=== PATIENT | female | born 1965 | race Caucasian/White ===

== ENCOUNTER 2019-11-30 23:14 | Emergency (ER) | payer BC ==
[2019-11-30] MEDS ORDERED: Lactated Ringers 1,000 ML IV ONE (23:24)
[2019-11-30] MEDS ORDERED: Ondansetron 4 MG/2 ML SDV IVPUSH ONE (23:24)
[2019-11-30] MEDS ORDERED: Atropine/Diphenoxylate 0.025-2.5 MG Tab PO ONE (23:25)
[2019-11-30] MEDS ORDERED: Pantoprazole 40 MG Vial IVPUSH ONE (23:25)
[2019-11-30] MEDS ORDERED: Sucralfate 1 GM Tab PO ONE (23:25)
[2019-11-30] MEDS ORDERED: Acetaminophen 500 MG Tab PO ONE (23:26)
--- NOTE | 2019-11-30 23:46 | EDM.PDOC ---
ED HPI GENERAL MEDICAL PROBLEM - General Chief Complaint: Gastrointestinal Problem Stated Complaint: THROWING UP BLOOD Time Seen by Provider: 11/30/19 23:30 Source of Information: Reports: Patient, Old Records, RN History Limitations: Reports: No Limitations - History of Present Illness INITIAL COMMENTS - FREE TEXT/NARRATIVE: 54 yo female developed nausea, vomiting and diarrhea about 4 pm today. No fever. Has had a total of 4 emesis. The first emesis had no blood, but subsequent bouts have had progressively more blood. Her stools are not red or black. She is dizzy with standing. Does have some epigastric pain. Has no hx of esophageal varices. Onset: Today Onset Date: 11/30/19 Onset Time: 16:00 Duration: Hour(s):, Getting Worse Location: Reports: Abdomen Quality: Reports: Ache (epigastric) Severity: Moderate Improves with: Reports: None Worsens with: Reports: Other (time) Context: Reports: Other (see HPI) Associated Symptoms: Reports: Nausea/Vomiting. Denies: Fever/Chills Treatments [employer]: Reports: Other (see below) (none) abd pain Pain Score (Numeric/FACES): 7 - Related Data Allergies Allergy/AdvReac Type Severity Reaction Status Date / Time No Known Allergies Allergy Verified 11/30/19 23:43 Home Meds: Home Meds Sucralfate [Carafate] 1 gm PO QID #100 tablet 12/01/19 [Rx] ED ROS GENERAL - Review of Systems Review Of Systems: See Below Constitutional: Reports: No Symptoms HEENT: Reports: No Symptoms Respiratory: Reports: No Symptoms Cardiovascular: Reports: Lightheadedness Endocrine: Reports: No Symptoms GI/Abdominal: Reports: Abdominal Pain (epigastric), Diarrhea, Hematemesis, Nausea, Vomiting. Denies: Black Stool, Bloody Stool, Constipation, Hematochezia , Melena : Reports: No Symptoms Musculoskeletal: Reports: No Symptoms Skin: Reports: No Symptoms Neurological: Reports: No Symptoms ED EXAM, GI/ABD - Physical Exam Exam: See Below Exam Limited By: No Limitations General Appearance: Alert, WD/WN, No Apparent Distress Eyes: Bilateral: Normal Appearance Ears: Normal External Exam, Normal Canal, Hearing Grossly Normal Nose: Normal Inspection, No Blood Throat/Mouth: Normal Inspection, Normal Lips, Normal Oropharynx, Normal Voice, No Airway Compromise, Other (dry tongue) Head: Atraumatic, Normocephalic Neck: Normal Inspection Respiratory/Chest: No Respiratory Distress, Lungs Clear, Normal Breath Sounds, No Accessory Muscle Use Cardiovascular: Regular Rate, Rhythm, No Edema GI/Abdominal Exam: Normal Bowel Sounds, Soft, No Distention, Tender (epigastrium ). No: Non-Tender, Distended, Guarding, Rigid, Rebound, Abnormal Bowel Sounds Back Exam: Normal Inspection Extremities: Normal Inspection, Normal Range of Motion, Non-Tender, No Pedal Edema Neurological: Alert, Oriented, CN II-XII Intact, Normal Cognition, No Motor/ Sensory Deficits Psychiatric: Normal Affect, Normal Mood Skin Exam: Warm, Dry, Intact, Normal Color, No Rash Course - Vital Signs Last Recorded V/S: Last Vital Signs Temp 36.4 C 11/30/19 23:59 Pulse 104 H 11/30/19 23:59 Resp 16 11/30/19 23:59 BP 118/72 11/30/19 23:59 Pulse Ox 96 11/30/19 23:59 - Orders/Labs/Meds Labs: Laboratory Tests 11/30/19 11/30/19 Range/Units 23:45 23:45 WBC 11.1 H (4.5-11.0) K/uL RBC 5.22 (3.30-5.50) M/uL Hgb 14.9 (12.0-15.0) g/dL Hct 46.0 (36.0-48.0) % MCV 88 (80-98) fL MCH 29 (27-31) pg MCHC 32 (32-36) % Plt Count 135 L (150-400) K/uL Sodium 140 (140-148) mmol/L Potassium 4.1 (3.6-5.2) mmol/L Chloride 107 (100-108) mmol/L Carbon Dioxide 21 (21-32) mmol/L Anion Gap 11.6 (5.0-14.0) mmol/L BUN 17 (7-18) mg/dL Creatinine 0.7 (0.6-1.0) mg/dL Est Cr Clr Drug Dosing 93.76 mL/min Estimated GFR (MDRD) > 60 (>60) Glucose 137 H (74-106) mg/dL Calcium 10.8 H (8.5-10.1) mg/dL Meds: Medications Discontinued Medications Generic Name Dose Route Start Last Admin Trade Name Elvin PRN Reason Stop Dose Admin Acetaminophen 1,000 mg 11/30/19 23:26 12/01/19 00:27 Tylenol Extra Strength PO 11/30/19 23:27 1,000 mg ONETIME ONE Administration Diphenoxylate HCl/Atropine 2 tab 11/30/19 23:25 12/01/19 00:28 Lomotil 0.025-2.5 Mg PO 11/30/19 23:26 2 tab ONETIME ONE Administration Lactated Ringer's 1,000 mls @ 1,000 mls/hr 11/30/19 23:24 11/30/19 23:46 Ringers, Lactated IV 12/01/19 00:23 1,000 mls/hr BOLUS ONE Administration Ondansetron HCl 4 mg 11/30/19 23:24 11/30/19 23:51 Zofran IVPUSH 11/30/19 23:25 4 mg ONETIME ONE Administration Pantoprazole Sodium 40 mg 11/30/19 23:25 11/30/19 23:54 Protonix Iv IVPUSH 11/30/19 23:26 40 mg ONETIME ONE Administration Sucralfate 1 gm 11/30/19 23:25 12/01/19 00:28 Carafate PO 11/30/19 23:26 1 gm ONETIME ONE Administration Departure - Departure Time of Disposition: 00:50 Disposition: Home, Self-Care 01 Condition: Fair Clinical Impression: Nausea vomiting and diarrhea Hematemesis Qualifiers: Nausea presence: with nausea Qualified Code(s): K92.0 - Hematemesis - Discharge Information *PRESCRIPTION DRUG MONITORING PROGRAM REVIEWED*: No *COPY OF PRESCRIPTION DRUG MONITORING REPORT IN PATIENT MARTINA: No Prescriptions: Sucralfate [Carafate] 1 gm PO QID #100 tablet Instructions: Viral Gastroenteritis, Adult, [id number] Referrals: Ivan Payne MD [Primary Care Provider] - Forms: ED Department Discharge, ED Return to Work/School Form Additional Instructions: Use Zofran as directed for nausea control. Use acetaminophen up to 1000 mg every 6 hrs as needed for pain relief. Avoid ibuprofen, Aleve, or aspirin for the next month. Take Carafate as directed to heal your stomach. Take loperamide per package instructions for diarrhea control ([id number]). Your diet should be clear liquids only until no vomiting for 12 hrs, then advance diet slowly as tolerated. Return to the ER for continued blood loss, otherwise follow up in the clinic. Sepsis Event Note - Focused Exam Vital Signs: Vital Signs Temp Pulse Resp BP Pulse Ox 11/30/19 23:59 36.4 C 104 H 16 118/72 96 11/30/19 23:27 36.4 C 104 H 16 118/72 96 Date Exam was Performed: 12/01/19 Time Exam was Performed: 00:38
== END 2019-12-01 00:58 | disposition home or self-care (01) ==
LOC: JP.ED 23:14
DX: K92.0 Hematemesis (principal); R19.7 Diarrhea, unspecified
CPT/HCPCS: 36415; 80048; 85027; 96361; 96374; 96375; 99284; A9270; C9113; J2405; J7120